=== PATIENT | male | born 1990 | race Hispanic/Latino ===

== ENCOUNTER 2021-12-31 00:42 | Emergency (ER) | payer OTHER, SELFPAY ==
[2022-01-01 15:22] LABS: Chlam.trachomatis by PCR,Urine Not Detected (NotDetected)
== END 2021-12-31 01:43 | disposition home or self-care (01) ==
LOC: CSHERS 00:42
DX: Z11.3 Encounter for screening for infections with a predominantly sexual mode of transmission (principal)
CPT/HCPCS: 87491; 87591; 99283